=== PATIENT | female | born 1960 | race Hispanic/Latino ===

== ENCOUNTER 2020-01-11 14:35 | Outpatient (CLI) | payer BC ==
--- NOTE | 2020-01-11 16:26 | RAD ---
RIGHT GREAT TOE FIVE VIEWS: 01/11/20 Multiple views were obtained. Some with a marker at the site of interest. No acute fracture or bony a maribell of destruction was seen. There are no soft tissue calcifications. The IP joint was unremarkable, as was the first MTP joint. IMPRESSION: No significant findings. At most, there may have been an old injury at the base of the distal phalanx at the IP joint, but this is most certainly longstanding and not new. POS: HOME
== END 2020-01-11 14:36 | disposition home or self-care (01) ==
LOC: BURRAD 14:35
PROVIDERS: ATTEND Podiatrist Foot & Ankle Surgery
DX: M79.674 Pain in right toe(s) (principal)